=== PATIENT | male | born 1975 | race Caucasian/White ===

== ENCOUNTER 2017-03-29 13:48 | Emergency (ER) | payer OTHER ==
[~2017-03-29] VITALS: Ht 177.8 cm; Wt 74.8 kg
--- NOTE | 2017-03-29 14:21 | NUR ---
BIB SELF CC: ABDOMINAL CRAMPING AND NAUSEA AND VOMITING, ADMITS TO HISTORY OF ALCOHOL ABUSE, ABLE TO AMBULATE TO BED, HAS FAMILY AT BEDSIDE, PLACED ON MONITOR, NO COMPLAINTS OF CHEST PAIN OR RESPIRATORY DISTRESS, WILL CONTINUE TO MONITOR CLOSELY .
[2017-03-29] MEDS ORDERED: PANTOPRAZOLE 40 MG TABLET.DR PO ONE ×2 (14:58→15:00)
[2017-03-29 15:06] VITALS: BP 146/80
== END 2017-03-29 15:07 | disposition home or self-care (01) ==
LOC: ER 13:50
DX: K21.9 Gastro-esophageal reflux disease without esophagitis (principal); R11.2 Nausea with vomiting, unspecified; F10.20 Alcohol dependence, uncomplicated; F17.200 Nicotine dependence, unspecified, uncomplicated; F19.10 Other psychoactive substance abuse, uncomplicated; Z88.1 Allergy status to other antibiotic agents; Z88.8 Allergy status to other drugs, medicaments and biological substances
CPT/HCPCS: 99283; A4606; Z7610

== ENCOUNTER 2017-05-29 17:12 | Emergency (ER) | payer MEDICAID, OTHER ==
[~2017-05-29] VITALS: Ht 172.7 cm; Wt 74.8 kg
--- NOTE | 2017-05-29 17:35 | NUR ---
PRESENTS SELF TO ED DT CONGESTION X 2 WEEKS. PATIENT IS [id number]. APPEARS IN NO APPARENT DISTRESS. RESPIRATION EVEN AND UNLABORED. SKIN IS WARM TO TOUCH AND NON DIAPHORETIC. AFERILE. VSS
[2017-05-29 18:09] VITALS: BP 116/74
--- NOTE | 2017-05-29 18:09 | NUR ---
Patient discharged to home in stable condition. Written and verbal after care instructions given. Patient verbalizes understanding of instruction.
== END 2017-05-29 18:10 | disposition home or self-care (01) ==
LOC: ER 17:15
DX: J06.9 Acute upper respiratory infection, unspecified (principal); H66.91 Otitis media, unspecified, right ear; F12.90 Cannabis use, unspecified, uncomplicated; F43.10 Post-traumatic stress disorder, unspecified; F17.200 Nicotine dependence, unspecified, uncomplicated; Z88.1 Allergy status to other antibiotic agents
CPT/HCPCS: A4606; Z7610